=== PATIENT | female | born 1990 | race Two or more races ===

== ENCOUNTER 2020-08-25 12:56 | Emergency (ER) | payer SELFPAY ==
[~2020-08-25] VITALS: Ht 157.5 cm; Wt 61.8 kg
[2020-08-25] MEDS ORDERED: KETOROLAC 30 MG/1 ML IM ONE (14:00)
[2020-08-25] MEDS ORDERED: ACETAMINOPHEN 500 MG TABLET PO ONE (14:00)
[2020-08-25] MEDS ORDERED: ONDANSETRON ODT 4 MG PO ONE (14:00)
[2020-08-25] MEDS ORDERED: ACETAMINOPHEN 500 MG TABLET ONE (14:05)
[2020-08-25] MEDS ORDERED: KETOROLAC 30 MG/1 ML ONE (14:05)
[2020-08-25] MEDS ORDERED: ONDANSETRON ODT 4 MG ONE (14:05)
--- NOTE | 2020-08-25 14:13 | NUR ---
The pt is a 30f complaining of RLQ and Right flank pain, nausea and vomiting x 2 days. She also complains of fever and chills. provider has been to bedside for eval and poc. sp02 and bp monitors in place. call light within reach.
[2020-08-25 14:52] LABS: MICROSCOPIC AUTO
[2020-08-25] MEDS ORDERED: CEFTRIAXONE 1,000 MG ONE (15:25)
[2020-08-25] MEDS ORDERED: LIDOCAINE-MPF 1%, 2ML ONE (15:26)
[2020-08-25] MEDS ORDERED: CEFTRIAXONE 1,000 MG IM ONE (15:30)
--- NOTE | 2020-08-25 15:35 | NUR ---
pt resting comfortably with call light in place. she states the medications greatly helped her pain and nausea. medicated per orders. pending d/c
[2020-08-25 17:11] VITALS: BP 125/72
--- NOTE | 2020-08-25 17:11 | NUR ---
Patient/Caregiver given discharge instructions and they have confirmed that they understand the instructions. Patient ambulatory with steady gait.
== END 2020-08-25 17:13 | disposition home or self-care (01) ==
LOC: ED 16:06
DX: N39.0 Urinary tract infection, site not specified (principal); Z20.822 Contact with and (suspected) exposure to COVID-19; R11.2 Nausea with vomiting, unspecified; M54.5 Low back pain; R51.9 Headache, unspecified; R19.7 Diarrhea, unspecified
CPT/HCPCS: 36415; 81001; 84703; 87077; 87086; 96372; 99284; J0696; J1885; Q0162; U0003; 87186